=== PATIENT | female | born 1970 | race Caucasian/White ===

== ENCOUNTER 2017-06-06 11:31 | Day surgery (SDC) | payer MEDICARE, MEDICAID, SELFPAY ==
[2017-06-06 12:07] VITALS: BP 121/66; PULSE 91; RESP 18; TEMP 37.2; O2SAT 97; BMI 29.7
[2017-06-06 12:20] LABS: Bedside Glucose 195 mg/dL (70-110)
--- NOTE | 2017-06-06 12:44 | PCM.DC.URO ---
Discharge Diet: Light diet - advance as tolerated Discharge Activity: Return to Normal Activity Instructions: Shock Wave Lithotripsy Allergies/Adverse Reactions: Allergies Penicillins Allergy (Verified 06/04/17 12:12) Unknown Sulfa (Sulfonamide Antibiotics) Allergy (Verified 06/04/17 12:12) Unknown Medications to take at Discharge Alendronate Sodium [Fosamax] 70 mg PO TH 01/07/17 Atorvastatin Calcium [Lipitor] 80 mg PO QHS 01/07/17 Cranberry 400 mg PO DAILY 01/07/17 Duloxetine Hcl [Cymbalta] 60 mg PO DAILY 01/07/17 Ergocalciferol [Vitamin D] 50,000 unit PO TH 01/07/17 GlipiZIDE [Glucotrol] 5 mg PO BIDAC 01/07/17 Insulin Aspart [Novolog Flexpen] 25 units SC TIDCM 01/07/17 Insulin Glargine [Lantus SoloStar Pen] 90 units SC QHS 01/07/17 Lisinopril [Prinivil] 5 mg PO DAILY 01/07/17 Metformin HCl [Glucophage] 1,000 mg PO BIDCM 01/07/17 Mirtazapine [Remeron] 30 mg PO QHS 01/07/17 Nitrofurantoin Macrocrystal [Macrodantin] 100 mg PO DAILY 01/07/17 [place]ston-3 Fatty Acids/Fish Oil [Fish Oil 1,000 mg Capsule] 1 ea PO BID 01/07/17 Omeprazole [Prilosec] 20 mg PO DAILY 01/07/17 Oxycodone CR [Oxycontin] 15 mg PO Q12H 01/07/17 Polyethylene Glycol 3350 [Miralax] 17 gm PO DAILY 01/07/17 Saliva Stimulant Agents Comb.2 [Biotene Oralbalance] 44.3 ml MM BID 01/07/17 Sennosides/Docusate Sodium [Senna Plus Tablet] 2 ea PO BID 01/07/17 acetaminophen 325 mg tablet 325 mg PO Q4H PRN tab 04/15/17 aripiprazole 5 mg tablet 5 mg PO QDAY 04/15/17 aspirin 81 mg tablet,delayed release 81 mg PO QDAY 04/15/17 bismuth subsalicylate 262 mg/15 mL oral suspension 524 mg PO Q30-60M PRN 04/15/17 kbuntxiuku-dyahgkympxjoa-bzmzozac 50 mg-325 mg-40 mg capsule 1 cap PO Q4H PRN cap 04/15/17 colloidal oatmeal 1 % topical cream 0 % TOPICAL .prn g 04/15/17 diphenhydramine 25 mg capsule 25 mg PO Q8H PRN 04/15/17 ibuprofen 200 mg tablet 400 mg PO Q6H PRN tab 04/15/17 insulin aspart 100 unit/mL subcutaneous pen 5 unit SC .COMPLEX 04/15/17 metoclopramide 5 mg tablet 5 mg PO Q6H PRN tab 04/15/17 nitroglycerin 0.4 mg sublingual tablet 0.4 mg SUBLINGUAL Q5M PRN 04/15/17 nitroglycerin 0.4 mg sublingual tablet 0.4 mg SUBLINGUAL Q5M PRN 04/15/17 ondansetron HCl 4 mg tablet 4 mg PO Q4H PRN 04/15/17 pregabalin 50 mg capsule 50 mg PO TID 04/15/17 sodium chloride 0.65 % nasal spray aerosol 1 spray INTRANASAL Q4H PRN 04/15/17 vilazodone 10 mg tablet 10 mg PO QDAY 04/15/17 Hydrocodone/Acetaminophen [[place] 5-325 Tablet] 1 ea PO Q4H PRN PRN #14 tab 06/06/17 The following prescriptions were given: Hydrocodone/Acetaminophen [[place] 5-325 Tablet] 1 ea PO Q4H PRN PRN #14 tab PRN Reason: Pain Primary Care Physician: Sandy Goff [Primary Care Provider] - Please Follow Up With: Garrett Leary MD When: in 2 weeks, please call to make an appointment.
[2017-06-06] MEDS: Cefazolin 2 GM in 0.9% Normal Saline 100 ML IV (12:47)
[2017-06-06 13:37] VITALS: BP 121/66; BP 146/86; PULSE 104; RESP 18; TEMP 36.8; O2SAT 100
[2017-06-06 13:45] VITALS: BP 121/66; BP 138/79; PULSE 99; RESP 18; O2SAT 99
--- NOTE | 2017-06-06 13:48 | PCM.OPRPT ---
Problem List (1) Renal calculus, left Status: Acute Report of Operation Date of Procedure: 06/06/17 Pre-Operative Diagnosis: Left renal calculi Post-Operative Diagnosis: Same Surgery/Procedure Performed:: Left shockwave lithotripsy Description of Surgical Findings:: 47-year-old female taken back to the operating room at this with induction of general anesthesia she was placed supine on the table. She has been off her blood thinners for at least 7 days. We could find the stone in the midpole the left kidney it was a fairly dense looking 9 mm stone in the mid kidney on the left side. We placed a stone in the focal point of the lithotripter and applied 3000 shockwaves at a rate of 120 up to a power of 5 and 6 at the end of the treatment cycle the stone certainly had broken up but it looked like it was in the calyx looks like a successful treatment but if possible the stones are in a small calyx. At this point decided not to leave a stent in and will see her back in a few weeks with a KUB to determine if more treatment is necessary. Type of Anesthesia:: General Drains: none - Admit VTE Documentation VTE Present on Admission: No VTE Mechan Device Prophylaxis: SCD's
[2017-06-06 13:51] LABS: Bedside Glucose 154 mg/dL (70-110)
[2017-06-06 14:00] VITALS: BP 121/66; BP 133/76; PULSE 98; RESP 18; O2SAT 97
[2017-06-06 14:07] VITALS: BP 121/66; BP 142/81; PULSE 90; TEMP 36.4; O2SAT 98
[2017-06-06 15:28] VITALS: BP 121/66
== END 2017-06-06 15:20 | disposition home or self-care (01) ==
LOC: SDC 11:32 → AC 11:34
PROVIDERS: Family Provider Student in an Organized Health Care Education/Training Program; PCP Student in an Organized Health Care Education/Training Program; Visit Provider Urology
PROC: (CPT 50590; principal; 2017-06-06 13:25)
DX: N20.0 Calculus of kidney (principal); F41.9 Anxiety disorder, unspecified; I10 Essential (primary) hypertension; F32.9 Major depressive disorder, single episode, unspecified; E11.9 Type 2 diabetes mellitus without complications; J44.9 Chronic obstructive pulmonary disease, unspecified; I51.9 Heart disease, unspecified; F17.200 Nicotine dependence, unspecified, uncomplicated; Z87.442 Personal history of urinary calculi; Z79.82 Long term (current) use of aspirin; Z79.4 Long term (current) use of insulin; Z79.891 Long term (current) use of opiate analgesic; Z79.899 Other long term (current) drug therapy; Z87.440 Personal history of urinary (tract) infections; Z86.73 Personal history of transient ischemic attack (TIA), and cerebral infarction without residual deficits
CPT/HCPCS: 00873; 50590; 82962; J7120; J2405

== ENCOUNTER → 2018-04-13 14:37 | Outpatient (CLI) | payer MEDICARE, MEDICAID, SELFPAY ==
--- NOTE | 2018-04-13 14:44 | CT_ITS ---
STUDY: CTA OF THE ABDOMINAL AORTA AND ABDOMINAL AND PELVIC ARTERIES REASON FOR EXAM: Female, 47 years old. Abdominal pain. History of CVA. Controlled hypertension. RADIATION DOSAGE (If Supplied By Facility): CTDIvol = ( 29.04 ) mGy, DLP = ( 1190.60 ) mGycm TECHNIQUE: Axial CT angiography multi-detector data acquisition was obtained from the lower lung vaughan to the proximal thighs following intravenous administration of 100 ml of Isovue 370 contrast. Axial images and MIP images were reconstructed from the axial data set. Post-processing of the angiographic images was performed, with multiplanar reformation and 3D reconstruction. Individualized dose optimization techniques were used for this CT. TECHNICAL QUALITY: Good COMPARISON: None. Descriptors of Narrowing: None (0%) Mild (< 50%) Moderate (50-70%) Severe (70-90%) Subtotal/Total Occlusion (90-100%) Non-Evaluable (technically non-diagnostic FINDINGS: Abdominal aorta: Noncalcified atherosclerotic plaques. There are areas of mild narrowing. No demonstrated aneurysm or dissection. Celiac and superior mesenteric arteries: No demonstrated narrowing. Inferior mesenteric artery: No demonstrated narrowing. Right renal artery(arteries): No demonstrated narrowing. Left renal artery(arteries): No demonstrated narrowing. Right common iliac artery: No demonstrated narrowing. Right external iliac artery: No demonstrated narrowing. Right internal iliac artery: No demonstrated narrowing. Right common femoral artery and proximal superficial and deep femoral arteries: No demonstrated narrowing. Left common iliac artery: No demonstrated narrowing. Left external iliac artery: No demonstrated narrowing. Left internal iliac artery: No demonstrated narrowing. Left common femoral artery and proximal superficial and deep femoral arteries: No demonstrated narrowing. ABDOMINAL AND PELVIC FINDINGS: The visualized lung bases are unremarkable. The visualized portions of the heart are within normal limits. There is a small amount of ascites fluid adjacent to the liver and in the posterior pelvis. The liver is enlarged and there is decreased attenuation of the liver consistent with steatosis. There are surgical clips in the gallbladder fossa consistent with a prior cholecystectomy. There is moderate splenomegaly. Normal pancreas. Normal bilateral adrenal glands. There are areas of cortical scarring in both kidneys. There is a 4 mm nonobstructive left upper pole renal calculus. There are no demonstrated ureteral calculi or hydronephrosis. There is a small hiatal hernia. Assessment the stomach is limited by nondistention. Normal small intestine. There is fecal distention of the rectum, suggesting constipation and possibly fecal impaction. Otherwise, normal appearing colon. There is non-visualization of the appendix. There is no evidence for appendicitis. Normal inferior vena cava. There is no demonstrated retroperitoneal lymphadenopathy. Normal urinary bladder. The uterus is absent. Normal abdominal wall. There are diffuse degenerative changes of the visualized lumbar spine. There is an old compression fracture of the T12 vertebral body. CT/CT ANGIO ABD&PEL W/O&W/DYE IMPRESSION: Atherosclerosis is present without evidence for hemodynamically significant arterial stenosis of the abdominal and pelvic arteries. No evidence for aortic aneurysm or dissection. Hepatomegaly with fatty infiltration of the liver. Moderate splenomegaly. Minimal ascites. Previous cholecystectomy and hysterectomy. Prominent fecal distention of the rectum, which may represent fecal impaction. Prominent cortical scarring in both kidneys. Small nonobstructive left renal calculus. No demonstrated ureteral calculus or hydronephrosis. Small hiatal hernia. Electronically Signed: Johnson Ruiz MD at 5:15 EST , Service support ,
[2018-04-13 15:21] LABS: CREATININE FINGERSTICK 1.3 mg/dL (0.55-1.02)
--- NOTE | 2018-04-13 15:50 | NURSING ---
1525 CT SCAN CONTRAST WAS GIVEN THRU PERIPHERAL IV, NO DISTRESS TO IV SITE, INTACT NO REDNESS, PT C/O NAUSEA AND VOMITED X2 LARGE AMOUNT OF DARK UNDIGESTED FOOD AND LIQUID, STATES SHE HAS A NERVOUS STOMACH AND EASILY GETS NAUSEATED. ROLLED TO SIDE TO PREVENT ASPIRATION, FIRST VS WAS 196/89/ 108 PULSE AND 97% PO, PT WAS ALERT AND STATED SHE FELT BETTER AFTER VOMITING, VS AT 1535 WAS 161/83, PO AT 98, MOVED TO CART TO EVALUATE, PT DID NOT WANT TO GO TO ER, ALERT X3, NO VISUAL DISTURBANCE, TALKED WITH DR UP AND STATED PATIENT OKAY TO DISCHARGE, PT STATED WAS A LITTLE DIZZY WHEN WENT FROM LAYING TO SITTING, ALSO STATED THIS IS USUALLY WHAT HAPPENS, 1550 VS 136/73 PO OF 98 PULSE OF 98. DISCHARGE TO [facility] FROM [facility] IN WHEELCHAIR, REPORT CALLED TO NURSE TRACEY BARRERA.
== END ==
PROVIDERS: Family Provider Student in an Organized Health Care Education/Training Program; PCP Student in an Organized Health Care Education/Training Program; Referring Provider Surgery Vascular Surgery; Visit Provider Surgery Vascular Surgery
DX: R10.9 Unspecified abdominal pain (principal); I77.6 Arteritis, unspecified
CPT/HCPCS: 74174; Q9967